=== PATIENT | male | born 1975 | race African-American/Black ===

== ENCOUNTER 2017-07-30 10:52 | Emergency (ER) | payer SELFPAY ==
[2017-07-30 11:36] LABS: #Basophils 0.1 thou/uL (0.0-0.2); #Eosinphils 0.1 thou/uL (0.0-0.7); #Lymphocytes 1.7 thou/uL (1.20-3.40); #Monocytes 0.6 thou/uL (0.11-0.59); #Neutrophils 7.2 thou/uL (1.40-6.50); %Basophils 0.7 % (0.0-1.0); %Eosinophils 0.8 % (0.0-10.0); %Lymphocytes 17.9 % (21.0-51.0); %Neutrophils 74.6 % (42.0-75.0); Hemoglobin 14.3 g/dL (14.0-18.0); Mean Corpuscular HGB CONC 31.5 g/dL (32.0-36.0); Mean Corpuscular Hemoglobin 26.5 pg (27.0-31.0); Mean Corpuscular Volume 84.1 fl (80.0-94.0); Mean Platelet Volume 8.7 fL (7.4-10.4); Platelet Count 329 thou/uL (130-400); RBC Distribution Width 12.5 % (11.5-14.5); Red Blood Cell (RBC) Count 5.39 mill/uL (4.70-6.10); White Blood Cell (WBC) Count 9.6 thou/uL (4.8-10.8)
[2017-07-30 11:39] LABS: Base Excess-Venous 0.5 mmol/L (-30.0-30.0); CO2 Tension (PvCO2) 43.6 mmHg (41.0-51.0); Calcium, Ionized 1.06 mmol/L (1.12-1.32); Hemoglobin - Calc 16.5 g/dL (12.0-18.0); O2 Tension (PvO2) 143.4 mmHg (35.0-45.0); Potassium 4.4 mmol/L (3.4-4.7); T. Carbon Dioxide 27.3 mmol/L (1.0-85.0); pH (Venous) 7.383 (7.35-7.45); vO2 Saturation-calc 99.2 % (0.0-100.0)
[2017-07-30 11:54] LABS: ALT (SGPT) 19 U/L (8-55); AST (SGOT) 12 U/L (5-34); Alkaline Phosphatase 99 U/L (40-150); Anion Gap 15 mmol/L (10-20); BUN (Urea Nitrogen) 18 mg/dL (8.9-20.6); Bilirubin, Total 0.6 mg/dL (0.2-1.2); Calc. Creatinine Clearance 0 mL/min (70-130); Calcium 9.6 mg/dL (7.8-10.44); Carbon Dioxide 24 mmol/L (22-29); Chloride 94 mmol/L (98-107); Estimated GFR-MDRD 69; Globulin 3.1 g/dL (2.4-3.5); Potassium 4.6 mmol/L (3.5-5.1); Protein, Total 7.1 g/dL (6.0-8.3); Sodium 128 mmol/L (136-145)
[2017-07-30 12:03] LABS: Glucose 637 mg/dL (70-105)
[2017-07-30] MEDS ORDERED: Insulin Regular 300 UNITS/3 ML VIAL ONE (12:04)
== END 2017-07-30 13:54 | disposition home or self-care (01) ==
LOC: ERS 10:52
DX: E11.65 Type 2 diabetes mellitus with hyperglycemia (principal); E86.0 Dehydration; Z79.899 Other long term (current) drug therapy; Z79.84 Long term (current) use of oral hypoglycemic drugs
CPT/HCPCS: 36416; 80053; 82010; 82330; 82803; 85025; 96361; 96374; J1815